=== PATIENT | male | born 1970 | race Caucasian/White ===

== ENCOUNTER 2024-03-17 11:32 | Emergency (ER) | payer OTHER, SELFPAY ==
[2024-03-17 11:38] VITALS: BP 160/104
[2024-03-17] MEDS: ADACEL 0.5 ML IM (13:55)
--- NOTE | 2024-03-17 13:55 | ED.GENMED ---
History of Present Illness
General
Chief Complaint: Skin Surface Trauma
Source: patient
Exam Limitations: none
Time Seen by Provider: 03/17/24 12:26
Nursing documentation reviewed up to this point in time: agreed with
History of Present Illness
History of Present Illness:
53-year-old male with no significant past medical history presenting to the emergency department today with concerns of a laceration to his right arm bicep region. This occurred when he tripped off of a ladder 1 or 2 feet but his arm scraped
against an exposed nail. This caused a laceration. Denies any additional injuries or concerns no head injury no lower extremity injury. He is unsure when his last tetanus shot was. Denies any gross contamination claims that the nail was somewhat
clean.
Review of Systems
Review of Systems
Allergies reviewed?: Yes
All Other Systems: ROS reviewed and negative except as documented in HPI and ROS
Phy Exam
Physical Exam
Physical Exam:
GENERAL: Alert , in no apparent distress
EYE: pupils equal and reactive
NECK: Supple, no significant adenopathy.
ENT: o/p clr, mmm.
CARDIAC: Regular rate and rhythm .
LUNGS: Clear breath sounds bilaterally, no acute respiratory distress, no wheezes/rales/rhonchi
ABDOMEN: Soft, without focal tenderness, no r/g, no cvat
NEUROLOGICAL: Alert and oriented, no focal neuro deficits
SKIN: Laceration to the right anterior bicep region. Roughly 6 cm in length subcutaneous in depth no good strength and range of motion of the upper extremities no apparent tendon or muscle injury. Warm and dry, skin intact.
MUSCULOSKELETAL: No edema, well perfused.
PSYCH: Normal and appropriate interaction.
Course
Orders/Labs/Results
Orders:
Orders
03/17/24 13:20
Tetanus/Diphth/Acelpertussis [Adacel] 0.5 ml IM .ONCE ONE
Vital Signs
Initial and Last Documented VS:
Initial Vital Signs
Temp Pulse Resp BP Pulse Ox
98.8 F 96 16 160/104 99
03/17/24 11:38 03/17/24 11:38 03/17/24 11:38 03/17/24 11:38 03/17/24 11:38
Last Documented Vital Signs
Temp Pulse Resp BP Pulse Ox
98.8 F 96 16 160/104 99
03/17/24 11:38 03/17/24 11:38 03/17/24 11:38 03/17/24 11:38 03/17/24 11:38
Procedures
Laceration Closure
Right Arm:
Status of Wound: clean
Size of Wound in cm: 6
Description of Wound Edges: sharp
Preparation: cleaned with saline
Anesthesia: 1% Lidocaine with epi
Revision/Debridement: routine- no revision and irrigate-direct pressure
Wound exploration: explored to base- no FB and no tendon involvement
Type of Closure: single layer closure
Skin Closure Material: 4-0 chromic gut
Number of sutures: 8
MDM/Problems Addressed
MDM/Problems Addressed:
53-year-old male presenting to the emergency department today after tripping off a ladder in his right arm hitting a nail. Because laceration roughly 6 cm in length subcutaneous in depth closed with 8 absorbable stitches. Initially it was
recommended that use nonabsorbable stitches. He mentioned that he was not going to follow-up and he understands that there is a slight increased risk of dehiscence with the nonabsorbable. He demonstrated under but these were performed he was
advised to limit significant range of motion activities that will increase risk of dehiscence. But otherwise area is very clean in appearance not requiring prophylactic antibiotics. No risk factors for fraction. Was given an updated tetanus shot.
Return precautions given.
*Critical Care Note
Total Time (30-74mins, 75-104mins- exclusive of procedures): Not Applicable
ED Attending Note
-
Portions of this chart may have been created with voice recognition software.� Occasional wrong word or��sound alike� substitutions may have occurred due to the inherent limitations of voice recognition software.
Discharge Plan
Departure
Patient Disposition: Home (Routine Discharge)
Date of Disposition: 03/17/24
Time of Disposition: 13:56
Patient with high blood pressure during this ER visit?: No
Condition: Good
Covid-19: Not Applicable
Discharge Problem:
Laceration of right upper arm
Instructions: Laceration Repair With Stitches (DC)
Referrals:
NONE,* [Family Provider] -
Activity Restrictions/Additional Instructions:
You came to the emergency department today with concerns of a laceration to your right arm. This was cleaned thoroughly and closed with 8 total absorbable sutures. Please keep the area clean dry and covered and start using ointment after 12 days
or so to help with the external portion of the stitches to dissolve. Return immediately for any worsening, new or concerning symptoms.
Interventions
Interventions:
*ED COVID-19 Vaccine History Last Done: 03/17/24 11:38
ED-Skin Assessment Last Done: 03/17/24 11:55
Discharge Date and Time
Print Language: BENINESE
== END 2024-03-17 14:07 | disposition home or self-care (01) ==
LOC: EMR 11:32
PROVIDERS: EMERGENCY PHYSICIAN Emergency Medicine
DX: S41.111A Laceration without foreign body of right upper arm, initial encounter (principal); W45.8XXA Other foreign body or object entering through skin, initial encounter; Z23 Encounter for immunization
CPT/HCPCS: 99283; 12002; 90471; 90715